=== PATIENT | female | born 1955 | race Caucasian/White ===

== ENCOUNTER → 2024-12-04 | Outpatient (CLI) | payer MEDICARE, BC, SELFPAY ==
[2024-12-04 16:45] LABS: Amphetamine/Methamp Scrn,U Negative (Negative); Barbiturate Screen,Urine Negative (Negative); Benzodiazepines Screen,Urine Positive (Negative); Benzoylecgonine Screen, Ur Negative (Negative); Fentanyl Screen,Urine Negative (Negative); Opiate Screen,Urine Positive (Negative); THC Screen,Urine Negative (Negative)
== END | disposition home or self-care (01) ==
LOC: SLDO 15:31
PROVIDERS: PCP Family Medicine; Referring Provider Family Medicine; Visit Provider Family Medicine
DX: M54.15 Radiculopathy, thoracolumbar region (principal); Z79.891 Long term (current) use of opiate analgesic
CPT/HCPCS: 80307

== ENCOUNTER 2024-12-15 09:13 | Outpatient (AMB) | payer MEDICARE, BC, SELFPAY ==
[2024-12-15 09:38] VITALS: BP 116/78; PULSE 93; RESP 19; TEMP 36.6; O2SAT 94; BMI 22.8
--- NOTE | 2024-12-15 09:38 | PD.ORTHCLVIS ---
Vital signs 12/15/24 09:38 Height 1.55 m Height Method Stated Weight 54.998 kg Weight Measurement Method Standing Scale BMI 22.8 BP 116/78 Blood Pressure Source Automatic Cuff Blood Pressure Location Left Upper Arm Position Sitting Respiration 19 Pulse 93 Pulse Source Monitor Temp 97.9 F Temp Source Temporal Artery Scan Pulse Oximetry (%) 94 L Oxygen Delivery Method Room Air Med/Allergies Allergies & Medications Allergies metoclopramide Allergy (Severe, Verified 12/15/24 09:39) SWELLING Medication Reconciliation alprazolam 0.5 mg tablet 1 tab PO QDAY PRN Anxiety 08/16/22 [History Confirmed 12/15/24] meloxicam 15 mg tablet 1 tab PO QDAY 08/16/22 [History Confirmed 12/15/24] ropinirole 0.25 mg tablet 1 tab PO HS 08/16/22 [History Confirmed 12/15/24] sertraline 50 mg tablet 1 tab PO QDAY 08/16/22 [History Confirmed 12/15/24] sumatriptan succinate 100 mg tablet 1 tab PO PRN PRN Anxiety 08/16/22 [History Confirmed 12/15/24] oxycodone myristate 9 mg capsule sprinkle extended release 12 hr(DON'T CRUSH) (Xtampza ER) 9 mg PO BID 09/21/24 [History Confirmed 12/15/24] Exam Exam Patient is in no acute distress and is cooperative with the examination today. Patient has a normal mood and affect. Breathing is nonlabored. In no respiratory distress. Bilateral extremities were evaluated and demonstrates sensation intact to light touch. Palpable pedal pulses are present. No significant edema is present. Bilateral knee incisions are clean dry and intact. Range of motion is 0 to 110 degrees Assessment and Plan Problem List (1) Status post total bilateral knee replacement: Status: Acute Plan: Patient is a 69-year-old female with a bilateral total knee replacements in a staged fashion. She is not happy with her scar. There appears to be some redundancy at the closure as there is a fold on the superior aspect of her incision that she is not happy with. I discussed with her that if he were to do a scar revision and be fairly thick cosmetic purposes. I would like to see x-rays to see if there is any reason why it needs to be painful at this time. We can consider an ESR and CRP as well. We will see her back after her x-rays are done of the left knee Advanced Care Planning Discussion Advance care planning discussed with:: patient Office Procedures GNS Level of Care Nursing/Assessment Patient Status: Established Patient Nursing Assessment/Reassesment: Medication Reconciliation, Update PMH in EMR and Vital Signs Coordination of Care: Complex Care and Chronic Disease 1-5, Education Complex Pt/Fam, Consent,records obtained, informed consent, Results/Orders obtained and Staff clarify orders Established Patient Charge Established Patient Point Assignment: 95 Established Patient Point Charge: EP Level 3 (80-115) MA Intake Visit Data Collection New Patient or Established: Established Patient (seen at [facility] within 3 years) Reason for Visit:: FOLLOW UP KNEE PAIN Seen by Clinical Staff ONLY (RN/MA): No [employer] Required: No PCP or OBGYN visit in last 3 months: Yes Hx Now: No Do You Feel Safe at Home: Yes Authorities Contacted: N/A Questionairres Past Medical History Past Medical History Have you ever been diagnosed with any of the following: Neurological Problems Seizures: No Migraine: Yes Cardiology Problems Congestive Heart Failure: No Respiratory Problems Chronic Obstructive Pulmonary Disease (COPD): No Genital/Urinary Problems Renal Disease: No Reproductive Problems Pelvic Inflammatory Disease: No Musculoskeletal Problems Osteoporosis: Yes Fibromyalgia: Yes Head,Eye,Nose,Throat Problems Cataracts: Yes Endocrine Problems Diabetes Mellitus Type 1: No Diabetes Mellitus Type 2: No Other Problems Blood Transfusions: No Blood Transfusion Reaction: No Anesthesia Reactions: No Cancer: Yes Surgical History Hysterectomy: Yes Subjective Visit Visit for: follow up visit and knee Immunization / Flu Flu Vaccine in the Last 12 Months: No Flu Vaccine Exclusion Criteria: No Exclusion Criteria History of Present Illness Chief complaint: Bilateral total knee replacements Kathleen Is 1 year and 6 months status post staged bilateral knee replacements. She is unhappy with her scar and reports it still hurts. She got x-rays and [facility] imaging. I would like to see these films and obtain new ones Pain Pain level (0-10): 3 Pain duration: ON AND OFF Pain location: inside (medial) Pain quality: aching Associated signs & symptoms: none Ambulatory data Ambulatory device: none Treatments Improvement with previous injections: No Improvement with PT: No Improvement with NSAIDS: no Review of Systems Review of Systems: All systems negative unless otherwise noted in HPI.
== END 2024-12-15 10:21 | disposition home or self-care (01) ==
PROVIDERS: PCP Family Medicine; Referring Provider Family Medicine; Supervising Provider Orthopaedic Surgery Adult Reconstructive Orthopaedic Surgery; Visit Provider Orthopaedic Surgery Adult Reconstructive Orthopaedic Surgery
DX: Z96.653 Presence of artificial knee joint, bilateral (principal)
CPT/HCPCS: 99213; G0463

== ENCOUNTER → 2024-12-15 | Outpatient (CLI) | payer MEDICARE, BC, SELFPAY ==
--- NOTE | 2024-12-15 10:38 | XR_ITS ---
Examination: Bilateral knees 2 views Right lateral knee left lateral knee 2 views Bilateral axial knees single view TECHNIQUE: Bilateral AP knees standing single view, bilateral PA knees standing 30 degrees flexion single view Right lateral knee left lateral knee 2 views Bilateral axial knees single view total 5 views Exam date and time: December 15, 1999 2551 hours INDICATIONS: Lump on the lateral side of the left knee after knee replacement 6 months ago, lump on the right knee inferior to the patella after knee replacement 11 months ago FINDINGS: Moderate osteopenia Bilateral knee arthroplasties with satisfactory alignment No loosening of the prosthetic components No fractures Small bilateral knee effusions No patellar dislocation IMPRESSION: Bilateral knee arthroplasties with satisfactory alignment Consider ultrasound soft tissue follow-up of any palpable knee abnormalities
== END | disposition home or self-care (01) ==
PROVIDERS: PCP Family Medicine; Referring Provider Orthopaedic Surgery Adult Reconstructive Orthopaedic Surgery; Visit Provider Orthopaedic Surgery Adult Reconstructive Orthopaedic Surgery
DX: M17.0 Bilateral primary osteoarthritis of knee (principal); Z96.653 Presence of artificial knee joint, bilateral
CPT/HCPCS: 73564

== ENCOUNTER 2025-01-01 10:50 | Outpatient (AMB) | payer MEDICARE, BC, SELFPAY ==
[2025-01-01 11:10] VITALS: BP 129/77; PULSE 89; RESP 19; TEMP 36.9; O2SAT 94; BMI 23.1
--- NOTE | 2025-01-01 11:10 | ORTHONT_ITS ---
Vital signs 01/01/25 11:10 Height 1.55 m Height Method Stated Weight 55.48 kg Weight Measurement Method Standing Scale BMI 23.1 BP 129/77 Blood Pressure Source Automatic Cuff Blood Pressure Location Left Upper Arm Position Sitting Respiration 19 Pulse 89 Pulse Source Monitor Temp 98.5 F Temp Source Temporal Artery Scan Pulse Oximetry (%) 94 L Oxygen Delivery Method Room Air Med/Allergies Allergies & Medications Allergies metoclopramide Allergy (Severe, Verified 01/01/25 11:11) SWELLING Medication Reconciliation alprazolam 0.5 mg tablet 1 tab PO QDAY PRN Anxiety 08/16/22 [History Confirmed 01/01/25] meloxicam 15 mg tablet 1 tab PO QDAY 08/16/22 [History Confirmed 01/01/25] ropinirole 0.25 mg tablet 1 tab PO HS 08/16/22 [History Confirmed 01/01/25] sertraline 50 mg tablet 1 tab PO QDAY 08/16/22 [History Confirmed 01/01/25] sumatriptan succinate 100 mg tablet 1 tab PO PRN PRN Anxiety 08/16/22 [History Confirmed 01/01/25] oxycodone myristate 9 mg capsule sprinkle extended release 12 hr(DON'T CRUSH) (Xtampza ER) 9 mg PO BID 09/21/24 [History Confirmed 01/01/25] Exam Exam Patient is in no acute distress and is cooperative with the examination today. Patient has a normal mood and affect. Breathing is nonlabored. In no respiratory distress. Bilateral extremities were evaluated and demonstrates sensation intact to light touch. Palpable pedal pulses are present. No significant edema is present. Bilateral knee incisions are clean dry and intact. Range of motion is 0 to 110 degrees Bilateral knee x-rays demonstrate cemented total knee replacement in good alignment position Assessment and Plan Problem List (1) Status post total bilateral knee replacement: Status: Acute Plan: Patient is a 69-year-old female with a bilateral total knee replacements in a staged fashion. She is not happy with her scar. There appears to be some redundancy at the closure as there is a fold on the superior aspect of her incision that she is not happy with. I discussed with her that if he were to do a scar revision and be fairly thick cosmetic purposes. Her knee x-rays actually look pretty good. She is not happy with the scar. I discussed with her that anything we would do would most likely be cosmetic. If The scar really bothers her she can see a plastic surgeon as well. I told her that there is a possibility that we would make her worse rather than better Advanced Care Planning Discussion Advance care planning discussed with:: patient Office Procedures GNS Level of Care Nursing/Assessment Patient Status: Established Patient Nursing Assessment/Reassesment: Medication Reconciliation, Update PMH in EMR and Vital Signs Coordination of Care: Complex Care and Chronic Disease 1-5, Education Complex Pt/Fam, Consent,records obtained, informed consent, Results/Orders obtained and Staff clarify orders Established Patient Charge Established Patient Point Assignment: 95 Established Patient Point Charge: EP Level 3 (80-115) MA Intake Visit Data Collection New Patient or Established: Established Patient (seen at [facility] within 3 years) Reason for Visit:: XRAY FOLLOW UP Seen by Clinical Staff ONLY (RN/MA): No [employer] Required: No PCP or OBGYN visit in last 3 months: Yes Hx Now: No Do You Feel Safe at Home: Yes Authorities Contacted: N/A Questionairres Past Medical History Past Medical History Have you ever been diagnosed with any of the following: Neurological Problems Seizures: No Migraine: Yes Cardiology Problems Congestive Heart Failure: No Respiratory Problems Chronic Obstructive Pulmonary Disease (COPD): No Genital/Urinary Problems Renal Disease: No Reproductive Problems Pelvic Inflammatory Disease: No Musculoskeletal Problems Osteoporosis: Yes Fibromyalgia: Yes Head,Eye,Nose,Throat Problems Cataracts: Yes Endocrine Problems Diabetes Mellitus Type 1: No Diabetes Mellitus Type 2: No Other Problems Blood Transfusions: No Blood Transfusion Reaction: No Anesthesia Reactions: No Cancer: Yes Surgical History Hysterectomy: Yes Subjective Visit Visit for: follow up visit, knee and x-rays Immunization / Flu Flu Vaccine in the Last 12 Months: No Flu Vaccine Exclusion Criteria: No Exclusion Criteria History of Present Illness Chief complaint: Bilateral total knee replacements Kathleen Is 1 year and 6 months status post staged bilateral knee replacements. She is unhappy with her scar and reports it still hurts. She got x-rays and [facility] imaging. I would like to see these films and obtain new ones Pain Pain level (0-10): 0 Pain duration: ON AND OFF Pain location: inside (medial) Pain quality: aching Associated signs & symptoms: none Ambulatory data Ambulatory device: none Treatments Improvement with previous injections: No Improvement with PT: No Improvement with NSAIDS: no Review of Systems Review of Systems: All systems negative unless otherwise noted in HPI.
== END 2025-01-01 11:36 | disposition home or self-care (01) ==
LOC: HODSRG 10:50
PROVIDERS: PCP Family Medicine; Referring Provider Family Medicine; Supervising Provider Orthopaedic Surgery Adult Reconstructive Orthopaedic Surgery; Visit Provider Orthopaedic Surgery Adult Reconstructive Orthopaedic Surgery
DX: Z96.653 Presence of artificial knee joint, bilateral (principal)
CPT/HCPCS: 99213; G0463

== ENCOUNTER → 2025-01-25 | Outpatient (CLI) | payer MEDICARE, BC, SELFPAY ==
--- NOTE | 2025-01-25 13:00 | XR_ITS ---
Examination: MRI cervical spine without intravenous contrast Date and time of exam: January 25, 2025 1356 hours Comparison March 29, 2020 INDICATIONS: Neck pain 20 years worse the last year radiating down the left arm weakness in the left arm Technique: Multiple axial and sagittal sections of the cervical spine to been obtained. T2 weighted sagittal sections, TR 3, 270, TE 117 T1-weighted sagittal sections, TR 500, TE 11 T1-weighted axial sections, TR 607, TE 12, axial sections TR 18, TE 27 and T2 weighted transverse sections, TR 3920, TE 122. Findings: Cervical fusion C4-C6 with satisfactory alignment No localized enlargement cervical cord Significant magnetic susceptibility artifact obscures detail on the axial images C3-C4 moderate left neural foraminal stenosis Lower axial images again degraded by magnetic susceptibility artifact IMPRESSION: Cervical fusion C4-C6 with satisfactory alignment C3-C4 moderate left neural foraminal stenosis
--- NOTE | 2025-01-25 13:30 | XR_ITS ---
Examination: MRI lumbar spine without contrast Date and time of exam: January 25, 2025 1356 hours Comparison February 01, 2016 INDICATIONS: Low back pain beginning one year ago Technique: Multiple MRI axial and sagittal sections lumbar spine. Sagittal T2-weighted images, TR 3500, TE 118 T1 weighted transverse sections, TR 688 T8.5, T2-weighted sagittal sections T1 weighted sagittal sections TR 621, TE 30 T2 axial sections, TR 4, 190, TE 84. Findings: Lumbar fusion L3-L5 with satisfactory alignment No lumbar fracture Adequate marrow signal lumbar vertebral bodies L5-S1 no disc protrusion L4-L5 no disc protrusion L3-L4 no disc protrusion L2-L3 3 mm central lumbar disc bulge L1-2 no disc protrusion IMPRESSION: Lumbar fusion L3-L5 with satisfactory alignment L2-L3 3 mm central lumbar disc bulge
== END | disposition home or self-care (01) ==
LOC: SMRI 01-28 07:21
PROVIDERS: PCP Family Medicine; Referring Provider Student in an Organized Health Care Education/Training Program; Visit Provider Student in an Organized Health Care Education/Training Program
DX: M43.22 Fusion of spine, cervical region (principal); M48.02 Spinal stenosis, cervical region; M51.369 Other intervertebral disc degeneration, lumbar region without mention of lumbar back pain or lower extremity pain; M43.26 Fusion of spine, lumbar region
CPT/HCPCS: 72141; 72148

== ENCOUNTER → 2025-04-05 | Outpatient (CLI) | payer MEDICARE, BC, SELFPAY ==
--- NOTE | 2025-04-05 15:56 | XR_ITS ---
Examination: Left elbow 3 views Technique: Elbow AP, oblique, lateral 3 views Exam date and time: April 05, 2025 1600 hours INDICATIONS: Elbow pain months FINDINGS: Significant osteopenia Comminuted acute fractures posterior olecranon which extends to the ulnar notch Radial head and neck intact as well as distal humerus IMPRESSION: Acute comminuted displaced fractures posterior olecranon including involving the ulnar notch.
== END | disposition home or self-care (01) ==
PROVIDERS: PCP Family Medicine; Referring Provider Family Medicine; Visit Provider Family Medicine
DX: S52.202A Unspecified fracture of shaft of left ulna, initial encounter for closed fracture (principal); X58.XXXA Exposure to other specified factors, initial encounter
CPT/HCPCS: 73080

== ENCOUNTER → 2025-05-18 | Outpatient (CLI) | payer MEDICARE, BC, SELFPAY ==
[2025-05-18 13:29] LABS: Anion Gap 8 (7-16); BUN/Creatinine Ratio 19 Ratio (12-20); Blood Urea Nitrogen 21 mg/dL (9-23); Calcium 9.7 mg/dL (8.3-10.6); Carbon Dioxide 26.6 mMol/L (20.0-31.0); Chloride 107 mMol/L (98-107); Creatinine (Component) 1.1 mg/dL (0.6-1.3); Glucose 85 mg/dL (74-106); Osmolality,Calculated 285 (275-295); Potassium 4.5 mMol/L (3.4-5.1); Sodium 142 mMol/L (136-145); eGFR 53 See Note
== END | disposition home or self-care (01) ==
LOC: COPL 11:42
PROVIDERS: PCP Family Medicine; Referring Provider Family Medicine; Visit Provider Family Medicine
DX: M81.0 Age-related osteoporosis without current pathological fracture (principal)
CPT/HCPCS: 36415; 80048

== ENCOUNTER → 2025-05-21 | Outpatient (CLI) | payer MEDICARE, BC, SELFPAY ==
--- NOTE | 2025-05-21 | XR_ITS ---
Examination: Foot, right, 3 views Technique: AP, oblique, lateral views foot, 3 views Date and time of exam: May 21, 2025 1150 hours INDICATIONS: Right foot third digit pain this week FINDINGS: Severe osteopenia Orthopedic hardware, fusion first tarsometatarsal joint Bunionectomy First digit osteotomy Dislocation at the proximal interphalangeal joint second digit with significant arthritic change IMPRESSION: Dislocation at the proximal interphalangeal joint second digit
== END | disposition home or self-care (01) ==
PROVIDERS: PCP Family Medicine; Referring Provider Family Medicine; Visit Provider Family Medicine
DX: S63.280A Dislocation of proximal interphalangeal joint of right index finger, initial encounter (principal); X58.XXXA Exposure to other specified factors, initial encounter
CPT/HCPCS: 73630

== ENCOUNTER → 2025-05-26 | Outpatient (CLI) | payer MEDICARE, BC, SELFPAY ==
[2025-05-26 09:10] VITALS: BP 124/74; PULSE 69; RESP 12; TEMP 37.2; O2SAT 95; BMI 23.0
[2025-05-26] MEDS: DENOSUMAB INJ 60 MG/ML SYRINGE SC (09:34)
[2025-05-26 09:45] VITALS: BP 136/77; PULSE 70; RESP 14; TEMP 36.8; O2SAT 94
== END | disposition home or self-care (01) ==
LOC: SFLEX 08:50
PROVIDERS: PCP Family Medicine; Referring Provider Family Medicine; Visit Provider Family Medicine
PROC: (CPT 96372; principal; 2025-05-26 09:00)
DX: M81.0 Age-related osteoporosis without current pathological fracture (principal)
CPT/HCPCS: 96372; J0897

== ENCOUNTER → 2025-06-23 | Outpatient (CLI) | payer MEDICARE, BC, SELFPAY ==
--- NOTE | 2025-06-23 15:00 | XR_ITS ---
Examination: CT lumbar spine, without contrast. 2-D sagittal reconstructions. 2-D coronal reconstructions. 3-D reconstructions. Date and time of exam:June 23, 2025 1512 hours INDICATIONS: Lower back pain beginning 2013 CTDI: vol (mGy):15.5 DLP: (mGycm):540 Technique: Multiple 1.25 mm axial sections of the lumbar spine without intravenous contrast have been obtained. 2-D sagittal and coronal reconstructions have been obtained. 3-D reconstructions have been obtained. Low dose protocols were performed. One or more of the following dose reduction techniques were used; automated exposure control, adjustment of the mA and/or KV according to patient size, use of iterative reconstruction technique. Findings: Severe osteopenia Lumbar fusion L3-L5 with anatomic alignment No acute lumbar fracture No cortical bone destruction Axial images demonstrate no focal lumbar disc protrusion IMPRESSION: Transpedicular lumbar fusion L3-L5 with anatomic alignment No significant acquired spinal stenosis
== END | disposition home or self-care (01) ==
PROVIDERS: PCP Family Medicine; Referring Provider Student in an Organized Health Care Education/Training Program; Visit Provider Student in an Organized Health Care Education/Training Program
DX: M43.26 Fusion of spine, lumbar region (principal)
CPT/HCPCS: 72131